=== PATIENT | male | born 1970 | race Caucasian/White ===

== ENCOUNTER 2019-08-14 15:58 | Emergency (ER) | payer OTHER ==
[2019-08-14 16:37] VITALS: BP 146/98
[2019-08-14] MEDS ORDERED: METHOCARBAMOL 750 MG TABLET PO ONE (16:48)
[2019-08-14] MEDS ORDERED: KETOROLAC TROMETHAMINE 60 MG/2 ML SDV IM ONE (16:48)
[2019-08-14] MEDS ORDERED: DEXAMETHASONE SOD PHOS INJ 10 MG/1 ML VIAL IM ONE (16:48)
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
== END 2019-08-14 17:19 | disposition home or self-care (01) ==
LOC: ER 15:58
DX: M54.5 Low back pain (principal); V49.9XXA Car occupant (driver) (passenger) injured in unspecified traffic accident, initial encounter; G89.29 Other chronic pain; F17.200 Nicotine dependence, unspecified, uncomplicated; I10 Essential (primary) hypertension
CPT/HCPCS: 99283; 96372; J1885; J1100; J3490